=== PATIENT | female | born 1985 | race Caucasian/White ===

== ENCOUNTER → 2025-09-15 13:27 | Outpatient (BNVA) | payer SELFPAY | PROVIDERS: Visit Provider Physician Assistant | DX: S60.221A Contusion of right hand, initial encounter (principal); W20.8XXA Other cause of strike by thrown, projected or falling object, initial encounter | CPT/HCPCS: 73110; 99204 ==

== ENCOUNTER → 2025-09-29 15:14 | Outpatient (BNVA) | payer OTHER, SELFPAY | PROVIDERS: PCP Family Medicine; Visit Provider Physician Assistant | DX: S60.221A Contusion of right hand, initial encounter (principal); W20.8XXA Other cause of strike by thrown, projected or falling object, initial encounter | CPT/HCPCS: 99213 ==

== ENCOUNTER 2025-10-05 14:00 | Outpatient (RCR) | payer OTHER, BC, SELFPAY ==
--- NOTE | 2025-09-17 15:20 | MHC.OT.EP ---
[facility] Office [address] [phone] F: [phone] F: [phone] Occupational Therapy Plan of Care Patient Name: Adelina Puente Date of Evaluation: 09/17/25 Diagnosis: R HAND CONTUSION Pain Location: BASE OF R THUMB/ THENAR EMINENCE REGION 2/10 AT REST 4/10 WITH USE ACHY Pain Score: 2-4/10 Pain Scale Used: Numeric (0 - 10) Aggravating Factors: FREQUENT IP/MP FLEXION, OPENING TIGHT JARS/CANS Alleviating Factors: IBUPROFEN NEEDED, ICING Assessment: MS Puente IS S/P CRUSH INJURY TO R HAND ONE WEEK AGO. SHE REPORTS DIFFICULTIES OPENING TIGHT JARS, BUTTONING, AND SCROLLING ON PHONE. SHE IS MOSTLY PAINFREE AT REST AND MODERATE 5/10 PAIN WITH USE AT HER R BASE OF THUMB/ THENAR EMINENCE REGION. A 20% LIMITATION IS REPORTED PER THE QUICK DASH ASSESSMENT. ONGOING SKILLED OT IS WARRANTED TO ADDRESS STRENGTH, PAIN, AND PATIENT EDUCATION. Frequency and Duration: The patient will be seen 2X/WEEK FOR 3 WEEKS Short Term Goals: SEE BELOW [employer] Goals: IND HEP IND USE OF HEAT/ICE IND SELF TAPING WITH R HAND NEEDED R GROSS GRASP >40 POUNDS REPORT <2/10 PAIN WITH IADLs, TYPING Treatment Plan: Therapeutic Exercise Therapeutic Activity Home Exercise Program Splinting Neuro Re-ed Patient Education Desensitization/Sensory Re-ed Edema Control ADL Training Ultrasound NMES Iontophoresis Paraffin Fluidotherapy MHP Cold Packs Joint Mobilization Soft Tissue Mobilization Kinesiotaping Other (see comments) Electronically Signed By: DAKSHA ESTES OTR/L Please Sign and return to therapist. Thank you once again for your referral.
== END 2025-10-05 14:38 | disposition home or self-care (01) ==
LOC: HO.OT 14:00
PROVIDERS: PCP Family Medicine; Visit Provider Physician Assistant
DX: S60.221D Contusion of right hand, subsequent encounter (principal)
CPT/HCPCS: 97110; 97140; 97165